=== PATIENT | male | born 1960 | race Caucasian/White ===

== ENCOUNTER → 2020-08-27 | Outpatient (CLI) | payer OTHER ==
[~2020-08-27] MED LIST: ATEN25TA PO
[2020-08-27 16:44] LABS: BASOPHILS % (AUTO) 1 % (0-1); EOSINOPHILS % (AUTO) 6 % (1-7); LYMPHOCYTES % (AUTO) 21 % (22-44); MEAN CORPUSCULAR HEMOGLOBIN 32.8 pg (27.5-34.5); MEAN CORPUSCULAR HGB CONC 33.7 g/dL (33.2-36.2); MEAN PLATELET VOLUME 7.5 fL (7.4-10.4); MONOCYTES % (AUTO) 15 % (2-9); NEUTROPHILS % (AUTO) 57 % (42-75); PLATELET COUNT 191 x10^3/uL (130-400); RED BLOOD COUNT 4.94 x10^6/uL (4.38-5.82); RED CELL DISTRIBUTION WIDTH 14.1 % (9.4-14.8)
[2020-08-27 16:56] LABS: ANION GAP 7 mmol/L (5-15); CALCIUM 9.2 mg/dL (8.5-10.1); CHLORIDE 103 mmol/L (98-107); CREATININE 1.05 mg/dL (0.7-1.3)
[2020-08-27 16:59] LABS: INTERNATIONAL NORMALIZED RATIO 1.02 (0.93-1.1); PROTHROMBIN TIME 10.9 Seconds (9.6-11.5)
== END | disposition home or self-care (01) ==
LOC: STAR 16:00
PROVIDERS: ATTEND Neurological Surgery
DX: Z01.812 Encounter for preprocedural laboratory examination (principal); Z20.822 Contact with and (suspected) exposure to COVID-19; M51.36 Other intervertebral disc degeneration, lumbar region; M48.061 Spinal stenosis, lumbar region without neurogenic claudication
CPT/HCPCS: 36415; 71046; 72110; 80048; 85025; 85610; 85730; 93005; U0003; U0005

== ENCOUNTER 2020-09-02 05:29 | Day surgery (SDC) | payer OTHER ==
[~2020-09-02] VITALS: Ht 190.5 cm; Wt 91.2 kg
[2020-09-02] MEDS ORDERED: OMEP20TA62 PO (06:04)
[2020-09-02 06:06] VITALS: BP 136/84
[2020-09-02] MEDS ORDERED: EPINEPHRINE 1 MG/ML, 1ML ONE (06:16)
[2020-09-02] MEDS ORDERED: FENTANYL PF 100 MCG/2ML ONE (06:16)
[2020-09-02] MEDS ORDERED: BUPIVACAINE/PF 0.25% ONE (06:16)
[2020-09-02] MEDS ORDERED: methylPREDNISolone SOD SUCC 125 MG/2 ML ONE (06:16)
[2020-09-02] MEDS ORDERED: GENTAMICIN 80 MG/2 ML ONE (06:17)
[2020-09-02] MEDS ORDERED: FINA5TAB4 PO (06:29)
[2020-09-02] MEDS ORDERED: CHLORHEXIDINE 15 ML UDC PO ONE (06:30)
[2020-09-02] MEDS ORDERED: LACTATED RINGERS 1,000 ML IV SCH (06:30)
[2020-09-02] MEDS ORDERED: MIDAZOLAM 1 MG/ML, 2ML ONE (06:44)
[2020-09-02] MEDS ORDERED: FENTANYL PF 250 MCG/5ML ONE (06:45)
[2020-09-02] MEDS ORDERED: PROMETHAZINE 25 MG/ML, 1ML IVPush PRN (07:00)
[2020-09-02] MEDS ORDERED: METHOCARBAMOL 1,000 MG in DEXTROSE 5% 100 ML IV PRN (07:00)
[2020-09-02] MEDS ORDERED: ALBUTEROL SULFATE 2.5 MG/3 ML NPPB PRN (07:00)
[2020-09-02] MEDS ORDERED: MEPERIDINE/PF 25MG/0.5ML IVPush PRN (07:00)
[2020-09-02] MEDS ORDERED: LORazepam 2 MG/ML, 1ML IVPush PRN (07:00)
[2020-09-02] MEDS ORDERED: LABETALOL 5MG/ML, 20ML IV PRN (07:00)
[2020-09-02] MEDS ORDERED: FENTANYL PF 100 MCG/2ML IV PRN (07:00)
[2020-09-02] MEDS ORDERED: ACETAMINOPHEN 325 MG TABLET PO PRN (07:00)
[2020-09-02] MEDS ORDERED: HYDROmorphone 1 MG/ML, 1ML INJ IVPush PRN (07:00)
[2020-09-02] MEDS ORDERED: OXYcodone 5 MG/5 ML ORAL.SOL UDC PO PRN (07:00)
[2020-09-02] MEDS ORDERED: EPHEDRINE 50 MG/ML, 1ML ONE (07:10)
[2020-09-02] MEDS ORDERED: PHENYLEPHRINE 10 MG/ML ONE (07:10)
[2020-09-02] MEDS ORDERED: PROPOFOL 50 ML ONE (07:26)
[2020-09-02] MEDS ORDERED: GENTAMICIN 80 MG/2 ML IM ONE (07:46)
[2020-09-02] MEDS ORDERED: BUPIVACAINE/PF-EPI 0.25% 1:200K INFIL ONE (07:48)
[2020-09-02] MEDS ORDERED: methylPREDNISolone SOD SUCC 125 MG/2 ML IVPush ONE (07:50)
[2020-09-02] MEDS ORDERED: FENTANYL PF 100 MCG/2ML IM ONE (07:53)
[2020-09-02] MEDS ORDERED: LIDOCAINE-MPF 2% ,5ML ONE (07:55)
[2020-09-02] MEDS ORDERED: ONDANSETRON 2MG/ML, 2ML ONE (08:22)
[2020-09-02] MEDS ORDERED: NEOSTIGMINE 1 MG/ML, 10ML ONE (08:22)
[2020-09-02] MEDS ORDERED: DEXAMETHASONE 4 MG/ML, 1ML ONE (08:22)
[2020-09-02] MEDS ORDERED: GLYCOPYRROLATE 0.2MG/1ML, 5ML ONE (08:22)
[2020-09-02] MEDS ORDERED: CEFAZOLIN 1,000 MG ONE (08:22)
[2020-09-02] MEDS ORDERED: ROCURONIUM 10MG/ML,5ML ONE (08:22)
[2020-09-02] MEDS ORDERED: PROPOFOL 10 MG/ML, 20ML ONE (08:22)
[2020-09-02] MEDS ORDERED: ACETAMINOPHEN 650 MG/20.3 ML UDC ONE (09:21)
== END 2020-09-02 10:45 | disposition home or self-care (01) ==
LOC: OUT 05:29
PROVIDERS: ATTEND Neurological Surgery
DX: M51.17 Intervertebral disc disorders with radiculopathy, lumbosacral region (principal); M48.061 Spinal stenosis, lumbar region without neurogenic claudication; M21.372 Foot drop, left foot; I10 Essential (primary) hypertension; N40.0 Benign prostatic hyperplasia without lower urinary tract symptoms; K21.9 Gastro-esophageal reflux disease without esophagitis; Z79.891 Long term (current) use of opiate analgesic; Z79.899 Other long term (current) drug therapy; Z82.49 Family history of ischemic heart disease and other diseases of the circulatory system
CPT/HCPCS: 63030; 63035; 72100; J0171; J0690; J1100; J1580; J2250; J2370; J2405; J2704; J2710; J2930; J3010; J7120